=== PATIENT | male | born 1990 | race Hispanic/Latino ===

== ENCOUNTER 2020-01-21 12:39 | Inpatient (IN) | payer BC, SELFPAY ==
[~2020-01-21 12:39] MED LIST: Glycopyrrolate 0.2 MG/ML 5 ML SYRINGE ONE; Lidocaine 1% PF 5 ML VIAL ONE; PROPOFOL 200 MG/20 ML VIAL ONE; Rocuronium Bromide 10 MG/ML (10ML VIAL) ONE; Succinylcholine Chloride 20 MG/ML 10 ml SYRINGE FS ONE
[2020-01-21 14:09] LABS: Anion Gap 14 mmol/L (10-20); BUN (Urea Nitrogen) 8 mg/dL (8.9-20.6); Carbon Dioxide 25 mmol/L (22-29); Chloride 101 mmol/L (98-107); Potassium 3.4 mmol/L (3.5-5.1); Sodium 137 mmol/L (136-145)
[2020-01-21 14:10] LABS: ALT (SGPT) 169 U/L (8-55); AST (SGOT) 47 U/L (5-34); Albumin 4.4 g/dL (3.5-5.0); Alkaline Phosphatase 102 U/L (40-110); Bilirubin, Total 0.9 mg/dL (0.2-1.2); Calc. Creatinine Clearance 0 mL/min (70-130); Calcium 9.4 mg/dL (7.8-10.44); Estimated GFR-MDRD 77; Glucose 162 mg/dL (70-105); Protein, Total 8.4 g/dL (6.0-8.3)
[2020-01-21] MEDS ORDERED: Iopamidol-370 76% 500 ML 1 ML ONE (14:57)
[2020-01-21 15:02] LABS: Bacteria/HPF None Seen HPF (None Seen); Bilirubin Negative (Negative); Blood, Urine Negative (Negative); Clarity Clear (Clear); Glucose, Urine (Dipstick) 50 mg/dL (Negative); Leukocyte Negative Leu/uL (Negative); Nitrite Negative (Negative); Protein, Urine (Dipstick) 70 mg/dL (Neg-Trace); RBC/HPF 0-3 HPF (0-3); Squamous Epithelial None Seen HPF (0-3); Urobilinogen Normal mg/dL (Less than 2); WBC/HPF 0-3 HPF (0-3)
[2020-01-21 18:01] LABS: Hemoglobin 16.7 g/dL (14.0-18.0); Mean Corpuscular HGB CONC 33.2 g/dL (32.0-36.0); Mean Corpuscular Hemoglobin 28.9 pg (27.0-31.0); Mean Corpuscular Volume 87.2 fL (78.0-98.0); Mean Platelet Volume 8.4 fL (7.4-10.4); Platelet Count 341 thou/uL (130-400); RBC Distribution Width 12.1 % (11.5-14.5); Red Blood Cell (RBC) Count 5.76 mill/uL (4.70-6.10); White Blood Cell (WBC) Count 15.9 thou/uL (4.8-10.8)
[2020-01-21 18:17] LABS: Band 24 % (5-11); Lymphocytes 5 % (21-51); MDiff Complete? YES; Metamyelocyte 1 % (0-0); Monocytes 5 % (0-10); Neutrophil 64 % (42-75); Platelet Morphology Comment Appears Adequate; RBC Morphology Normal; Reactive Lymphocytes 1 % (0-10)
--- NOTE | 2020-01-21 18:46 | CT ---
CT ABDOMEN AND PELVIS WITH CONTRAST: History: Abdominal pain, chills, fever. Comparison: None. FINDINGS: Some mild atelectasis right lung base. No pericardial effusion. Aortic contour is non-aneurysmal. Some volume free fluid in the pelvis. There is acute appendicitis with an appendicolith at the appendiceal base. There is extensive periapp endiceal inflammation as well as inflammation of the iliac mesenteric fat occurring along the omentum . There is fluid in the right pericolic gutter. There is peritonitis. Secondary inflammatory change o f the distal ileum. There is an ileus of the distal ileum. Gallbladder is clear. Pancreas unremarkable. The pancreas is unremarkable, along the with the adrenal glands. No hydronephrosis. Bilateral symmetric renal enhancement. No acute osseous abnormality. IMPRESSION: 1. Findings of acute appendicitis with small appendiceal base appendicolith. 2. Extensive inflammatory change all throughout the lower pelvis which may reflect a component of per foration of the appendix. No free intraperitoneal gas is appreciated. Surgical consultation advised. 3. Inflammatory change involving the mesentery of the distal ileum with hyper enhancement. 4. Peritonitis with moderate volume free fluid in the pelvis and along the right pericolic gutter. POS: HOME
[2020-01-21] MEDS ORDERED: Piperacillin/Tazobactam 3.375 GM VIAL ONE (19:12)
[2020-01-21] MEDS ORDERED: Ondansetron PF 4 MG/2 ML Vial ONE ×2 (19:12→22:31)
[2020-01-21] MEDS ORDERED: Morphine 4 MG/ML VIAL ONE (19:12)
[2020-01-21] MEDS ORDERED: Ketorolac Tromethamine 30 MG/ML VIAL ONE (19:31)
[2020-01-21] MEDS ORDERED: Acetaminophen 500 MG TAB ONE (19:34)
[2020-01-21] MEDS ORDERED: Bupivacaine PF 0.5% 30 ML VIAL ONE (19:55)
[2020-01-21] MEDS ORDERED: EPINEPHrine 1 MG/ML AMP ONE (19:55)
[2020-01-21] MEDS ORDERED: Lidocaine 1% w/Epinephrine 1:100K 20 ML VIAL ONE (19:57)
[2020-01-21] MEDS ORDERED: Midazolam HCl 2 mg/2 ml Vial ONE (20:04)
[2020-01-21] MEDS ORDERED: Fentanyl 100 MCG/2 ML VIAL ONE (20:04)
[2020-01-21] MEDS ORDERED: hydrALAZINE 20 MG/ML VIAL SLOW IVP PRN (20:33)
[2020-01-21] MEDS ORDERED: Morphine 4 MG/ML VIAL SLOW IVP PRN ×2 (20:33→20:39)
[2020-01-21] MEDS ORDERED: traMADol HCl 50 MG TAB PO PRN (20:36)
--- NOTE | 2020-01-21 21:07 | HP ---
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 He continued to have pain, localized in the right lower quadrant, increased pain with movement, suffered anorexia and nausea. He presented to [facility] Emergency Room at noon and waited for 4-5 hours and was not seen. His is upset that other people arrived after them and were seen before them and sent home. The patient was seen eventually and appreciated to have an exam suspicious for appendicitis, underwent a CAT scan confirming an appendicitis. I was called at 7:30 p.m. and decision was made to put him in the hospital overnight and on antibiotics and perform a laparoscopic appendectomy the next day. The patient had his first set of vital signs taken since noon at 8 p.m. and was noted to have a fever to 102 degrees, tachycardic to 140, and respiratory rate in the upper 20s. I was called again. Decision was made to attend to the surgical problem tonight and he was brought down for a laparoscopic appendectomy from the emergency room prior to going to his room. He received Zosyn and Toradol IV and Tylenol p.o. ALLERGIES: NONE. TOBACCO: None. ALCOHOL: Socially. MEDICATIONS: None routinely. PAST SURGICAL HISTORY: Noncontributory. PAST MEDICAL HISTORY: Noncontributory. PHYSICAL EXAMINATION: VITAL SIGNS: Heart rate 110, respiratory rate 18, 130/68. HEAD, EARS, EYES, NOSE, AND THROAT: Unremarkable. LUNGS: Clear to auscultation. CARDIAC: Slight sinus tachycardia. ABDOMEN: Tender, right lower quadrant. No guarding or rebound. Positive Rovsing's. EXTREMITIES: Unremarkable. LABORATORY DATA: White count 72035, 24% bands, hemoglobin 16. Liver function tests normal. Basic met is normal. BUN 8, creatinine 1.13. CAT scan revealed changes consistent with appendicitis. ASSESSMENT AND PLAN: Acute appendicitis. Recommend laparoscopic video appendectomy. Risks of infection, bleeding, visceral injury, open procedure, postoperative bleeding, etc., discussed. Questions answered. Job ID: [id number]
[2020-01-21] MEDS ORDERED: SUGAMMADEX SODIUM 500 MG/5 ML VIAL ONE (21:23)
[2020-01-21] MEDS ORDERED: Ondansetron HCl/PF 4 MG/2 ML Vial IVP PRN (21:34)
[2020-01-21] MEDS ORDERED: Promethazine HCl 25 MG/ML VIAL IM PRN (21:34)
[2020-01-21] MEDS ORDERED: Promethazine HCl 25 MG/ML VIAL SLOW IVP PRN (21:34)
[2020-01-21] MEDS: Lactated Ringer's 1,000 ML IV SCH (23:09)
[2020-01-21] MEDS: Ketorolac Tromethamine 30 MG/ML VIAL IVP SCH (23:13)
[2020-01-21] MEDS: Enoxaparin Sodium 40 MG/0.4 ML SYRINGE SC SCH (23:13)
[2020-01-22] MEDS: Piperacillin/Tazobactam 4.5 GM in Sodium Chloride 0.9% 100 ML IVPB SCH ×4 (01:59→20:33)
[2020-01-22] MEDS: Lactated Ringer's 1,000 ML IV SCH ×2 (02:00→09:15)
--- NOTE | 2020-01-22 03:08 | OP ---
DATE OF PROCEDURE: 01/21/2020 PREOPERATIVE DIAGNOSES: Acute appendicitis, ruptured with peritonitis. POSTOPERATIVE DIAGNOSES: Acute appendicitis, ruptured with peritonitis. PROCEDURES PERFORMED: Laparoscopic video appendectomy, #19 Gold EDNA drain, and abdominal washout, 3 L. ANESTHESIA: General, local of 0.5% Marcaine 30 mL mixed with 1% Xylocaine with epinephrine 20 mL, 30 mL mixture used. DESCRIPTION OF PROCEDURE: The patient was taken to the operating room, where under general anesthesia, abdomen was clipped of hair, prepared with ChloraPrep and draped in routine fashion. Lombardi catheter was placed at the beginning of the procedure and removed at the end. Pneumoperitoneum to 15 mmHg was obtained with Veress needle through an infraumbilical incision and Veress needle was replaced with a 5 port and laparoscope was inserted. Right lateral subcostal incision was made. A 5 port was placed. Suprapubic incision was made, and a 12 port was placed. There was a ruptured appendicitis with purulence in the pelvis and right gutter. Appendix was acutely inflamed and perforated. Mesentery was taken down with the LigaSure. The stump of the appendix was divided in the cecal stump with Endo laparoscopic stapler, blue load. Stapled the cecal stump. Hemostasis was gained with clips. Appendix was placed in Endobag and removed. Abdominal cavity was irrigated with 3 L of saline. Irrigant was evacuated. Hemostasis was noted. A #19 Gold EDNA drain was placed through the right lateral port site subcostal and secured with 3-0 nylon and drain was placed in the right gutter and pelvis. Irrigant and pneumoperitoneum were evacuated. All instruments were removed after suprapubic fascia was approximated with 0 Vicryl on GraNee needle. All skin incisions were approximated with subdermal 4-0 Monocryl. Job ID: [id number]
[2020-01-22] MEDS: traMADol HCl 50 MG TAB PO PRN ×3 (04:04→16:11)
[2020-01-22] MEDS: Ketorolac Tromethamine 30 MG/ML VIAL IVP SCH ×3 (05:12→17:37)
[2020-01-22 05:43] LABS: Band 52 % (5-11); Hemoglobin 13.6 g/dL (14.0-18.0); Lymphocytes 10 % (21-51); MDiff Complete? YES; Mean Corpuscular HGB CONC 32.1 g/dL (32.0-36.0); Mean Corpuscular Hemoglobin 28.4 pg (27.0-31.0); Mean Corpuscular Volume 88.6 fL (78.0-98.0); Mean Platelet Volume 8.7 fL (7.4-10.4); Monocytes 7 % (0-10); Neutrophil 31 % (42-75); Platelet Count 248 thou/uL (130-400); Platelet Morphology Comment Appears Adequate; RBC Distribution Width 12.2 % (11.5-14.5); Red Blood Cell (RBC) Count 4.79 mill/uL (4.70-6.10); White Blood Cell (WBC) Count 14.2 thou/uL (4.8-10.8)
[2020-01-22] MEDS: Acetaminophen 500 MG TAB PO PRN ×2 (09:11→16:11)
--- NOTE | 2020-01-22 16:33 | PRG ---
DATE OF SERVICE: 01/22/2020 SUBJECTIVE: Javon Gilmore is 1 day status post laparoscopic appendectomy for perforated appendicitis with peritonitis. He has a drain. It is draining serosanguineous. 50 mL in the last 24 hours. His white count this morning is 14, hemoglobin 13. Basic metabolic profile is normal. He is tolerating his diet. OBJECTIVE: LUNGS: Clear to auscultation. CARDIAC: Regular rate and rhythm without murmur or gallop. ABDOMEN: Soft. Postoperative tenderness. Surgical trocar sites healthy. No problems. EXTREMITIES: Unremarkable. ASSESSMENT AND PLAN: Resolving peritonitis from perforated appendicitis. Continue drain. Continue intravenous antibiotics. Decrease IV fluids. Increase activity. Anticipate discharge in next 24 to 48 hours, pending clinical course. Job ID: [id number]
[2020-01-22] MEDS: Enoxaparin Sodium 40 MG/0.4 ML SYRINGE SC SCH (20:34)
[2020-01-22] MEDS ORDERED: FLU VACC QS2019-20(6MOS UP)/PF 60 MCG/0.5 ML SYRINGE IM ONE (21:00)
[2020-01-23] MEDS: Ketorolac Tromethamine 30 MG/ML VIAL IVP SCH ×5 (00:37→23:33)
[2020-01-23] MEDS: Piperacillin/Tazobactam 4.5 GM in Sodium Chloride 0.9% 100 ML IVPB SCH ×4 (03:14→20:17)
[2020-01-23 05:49] LABS: #Eosinphils 0.1 thou/uL (0.0-0.7); #Lymphocytes 1.9 thou/uL (1.20-3.40); #Monocytes 0.9 thou/uL (0.11-0.59); #Neutrophils 13.7 thou/uL (1.40-6.50); %Basophils 0.1 % (0.0-1.0); %Eosinophils 0.6 % (0.0-10.0); %Lymphocytes 11.4 % (21.0-51.0); %Monocytes 5.4 % (0.0-10.0); %Neutrophils 82.5 % (42.0-75.0); Hemoglobin 13.3 g/dL (14.0-18.0); Mean Corpuscular HGB CONC 33.1 g/dL (32.0-36.0); Mean Corpuscular Hemoglobin 29.6 pg (27.0-31.0); Mean Corpuscular Volume 89.6 fL (78.0-98.0); Mean Platelet Volume 9.1 fL (7.4-10.4); Platelet Count 227 thou/uL (130-400); RBC Distribution Width 12.2 % (11.5-14.5); White Blood Cell (WBC) Count 16.6 thou/uL (4.8-10.8)
[2020-01-23] MEDS: Ondansetron ODT 4 MG TAB PO PRN ×2 (08:14→20:19)
[2020-01-23] MEDS ORDERED: Lactated Ringer's 1,000 ML IV SCH ×2 (12:15→12:45)
[2020-01-23] MEDS: Lactated Ringer's 1,000 ML IV SCH ×2 (12:47→23:35)
--- NOTE | 2020-01-23 13:16 | PQF ---
CLINICAL DOCUMENTATION IMPROVEMENT CLARIFICATION FORM: ICD-10 Updated PLEASE DO AN ADDENDUM TO THE PROGRESS NOTE WITH ANY DOCUMENTATION UPDATES OR ADDITIONS AND CARRY THROUGH TO DC SUMMARY. THANK YOU. DATE: 01/23/20 ATTN : DR. CONNOR Please exercise your independent, professional judgment in responding to the clarification form. Clinical indicators are provided on the bottom of this form for your review Please check appropriate box(es): [ yes] Sepsis due to: (Pna, UTI, gangrenous gall bladder, etc.) __ruptured appendicitis/peritonitis [ ] SIRS due to non-infectious process (please specify etiology) [ ] Localized infection without sepsis [ ] Other diagnosis [ ] Unable to determine In addition, please specify: Present on Admission (POA): [yes ] Yes [ ] No [ ] Unable to determine For continuity of documentation, please document condition throughout progress notes and discharge summary. Thank You. CLINICAL INDICATORS - SIGNS / SYMPTOMS / LABS / RESULTS AND LOCATION IN MR ER NOTE: PULSE 142 RR 32 TEMP 103.1 WBC 01/20: 15.9 WBC 01/21: 14.2 WBC 01/22: 16.6 RISKS: APPENDICITIS, RUPTURED WITH PERITONITIS (OP NOTE 01/20) TREATMENT: IV FLUIDS (ER-PRESENT) IV ZOSYN (ER-PRESENT) APPENDECTOMY WITH DRAIN AND ABDOMINAL WASHOUT (OP NOTE /) SERIAL LABS [employer] Winform Viewer (This form is maintained as a part of the permanent medical record) 2014 [employer]. All Rights Reserved [email or web address] Office: [phone] [facility]
--- NOTE | 2020-01-23 13:26 | PRG ---
DATE OF SERVICE: 01/23/2020 SUBJECTIVE: Javon Gilmore is doing fairly well. He is having some nausea. Urine output is diminished. OBJECTIVE: VITAL SIGNS: His heart rate is mildly elevated to 107 and 97, temperature 98.5 degrees, blood pressure 117/78. EDNA drain is serosanguineous in nature. 150 mL in last 24 hours. LUNGS: Clear to auscultation. CARDIAC: Regular rhythm. No murmur or gallop. ABDOMEN: Soft. Diminished bowel sounds. Postoperative tenderness. EXTREMITIES: Unremarkable. LABORATORY DATA: White count 16, hemoglobin 13. Labs, none today. ASSESSMENT AND PLAN: appendicitis with peritonitis. Continue intravenous antibiotics. We will take him back to clear liquids. Increase IV fluids. Await better bowel function and nausea to resolve. Job ID: [id number]
[2020-01-23] MEDS: Enoxaparin Sodium 40 MG/0.4 ML SYRINGE SC SCH (20:17)
[2020-01-23] MEDS: Acetaminophen 500 MG TAB PO PRN (23:32)
[2020-01-24] MEDS: Piperacillin/Tazobactam 4.5 GM in Sodium Chloride 0.9% 100 ML IVPB SCH ×4 (02:19→20:18)
[2020-01-24] MEDS: Lactated Ringer's 1,000 ML IV SCH ×3 (04:23→20:23)
[2020-01-24] MEDS: Ketorolac Tromethamine 30 MG/ML VIAL IVP SCH ×4 (05:47→23:15)
[2020-01-24 06:02] LABS: #Eosinphils 0.3 thou/uL (0.0-0.7); #Lymphocytes 2.2 thou/uL (1.20-3.40); #Monocytes 0.9 thou/uL (0.11-0.59); #Neutrophils 11.1 thou/uL (1.40-6.50); %Basophils 0.1 % (0.0-1.0); %Eosinophils 2.3 % (0.0-10.0); %Lymphocytes 15.3 % (21.0-51.0); %Monocytes 6.1 % (0.0-10.0); %Neutrophils 76.2 % (42.0-75.0); Hemoglobin 12.4 g/dL (14.0-18.0); Mean Corpuscular HGB CONC 33.9 g/dL (32.0-36.0); Mean Corpuscular Hemoglobin 29.8 pg (27.0-31.0); Mean Platelet Volume 8.8 fL (7.4-10.4); Platelet Count 256 thou/uL (130-400); Red Blood Cell (RBC) Count 4.15 mill/uL (4.70-6.10); White Blood Cell (WBC) Count 14.6 thou/uL (4.8-10.8)
[2020-01-24 06:26] LABS: Anion Gap 10 mmol/L (10-20); BUN (Urea Nitrogen) 13 mg/dL (8.9-20.6); Calc. Creatinine Clearance 210 mL/min (70-130); Calcium 8.7 mg/dL (7.8-10.44); Carbon Dioxide 27 mmol/L (22-29); Chloride 104 mmol/L (98-107); Estimated GFR-MDRD Greater than 90; Glucose 76 mg/dL (70-105); Potassium 3.2 mmol/L (3.5-5.1); Sodium 138 mmol/L (136-145)
[2020-01-24] MEDS ORDERED: Potassium Chloride 20 MEQ TAB PO SCH (07:30)
[2020-01-24] MEDS: Ondansetron ODT 4 MG TAB PO PRN (12:50)
--- NOTE | 2020-01-24 16:47 | PRG ---
DATE OF SERVICE: 01/24/2020 SUBJECTIVE: Hospital day #3, status post laparoscopic appendectomy for perforated appendicitis with peritonitis. He has drain in place. His drainage is serosanguineous. Output is 40 mL in last 24 hours. Urine output is good. He is voiding spontaneously after removal of [place]. [place] [address] [address] yesterday, hemoglobin 12. Basic metabolic profile is normal. The patient is tolerating liquids, although not very well. He still on IV fluids. IV fluids were restarted yesterday. He reports small flatus but no bowel movement. OBJECTIVE: LUNGS: Clear to auscultation. CARDIAC: Regular rhythm. No murmur or gallop. ABDOMEN: Soft, less tender. Occasional bowel sounds. EDNA drain serosanguineous. ASSESSMENT AND PLAN: Perforated appendicitis. Continue drain remove prior to discharge. He will continue on full liquids, advance tomorrow pending clinical course and GI function. Continue Zosyn IV for peritonitis. Job ID: [id number]
[2020-01-24] MEDS: Enoxaparin Sodium 40 MG/0.4 ML SYRINGE SC SCH (20:18)
[2020-01-25] MEDS: Piperacillin/Tazobactam 4.5 GM in Sodium Chloride 0.9% 100 ML IVPB SCH ×4 (01:21→20:07)
[2020-01-25] MEDS: Lactated Ringer's 1,000 ML IV SCH (03:34)
[2020-01-25] MEDS: traMADol HCl 50 MG TAB PO PRN ×2 (03:34→18:20)
[2020-01-25] MEDS: Ketorolac Tromethamine 30 MG/ML VIAL IVP SCH ×4 (05:09→23:45)
[2020-01-25] MEDS: Acetaminophen 500 MG TAB PO PRN ×2 (05:09→23:44)
[2020-01-25 06:28] LABS: Band 5 % (5-11); Eosinophils 2 % (0-10); Lymphocytes 10 % (21-51); MDiff Complete? YES; Mean Corpuscular HGB CONC 34.9 g/dL (32.0-36.0); Mean Corpuscular Hemoglobin 30.5 pg (27.0-31.0); Mean Corpuscular Volume 87.3 fL (78.0-98.0); Monocytes 13 % (0-10); Neutrophil 70 % (42-75); Platelet Count 268 thou/uL (130-400); RBC Distribution Width 11.8 % (11.5-14.5); Red Blood Cell (RBC) Count 3.95 mill/uL (4.70-6.10)
[2020-01-25] MEDS ORDERED: Potassium Chloride 20 MEQ TAB PO SCH (11:15)
--- NOTE | 2020-01-25 12:07 | PRG ---
DATE OF SERVICE: 01/25/2020 SUBJECTIVE: Javon Gilmore is doing well today. He is tolerating his diet. He desires a regular diet and I will order that. OBJECTIVE: VITAL SIGNS: He did have a temperature of 100.2 degrees at 5 o'clock this morning, currently 98.3 degrees, pulse 76, and blood pressure 161/91. LUNGS: Clear to auscultation. CARDIAC: Regular rhythm without murmur or gallop. ABDOMEN: Soft. Good bowel sounds plus flatus. He did have some loose stools. EXTREMITIES: Unremarkable. LABORATORY DATA: His white count is slightly improved down to 13, down from 16 two days ago. His differential is normal. His electrolytes are normal. Potassium slightly low at 3.2. We will replace potassium orally. ASSESSMENT AND PLAN: Status post perforated appendicitis. Continue intravenous antibiotics until afebrile. White blood cell count has a downward trend. He may be able to go home over the weekend on oral antibiotics. We will remove his drain today. Dr. Rincon is covering over the weekend and will be seeing him in the next 3 days. We will replace his potassium, replete that in the morning. Job ID: [id number]
[2020-01-25] MEDS: Enoxaparin Sodium 40 MG/0.4 ML SYRINGE SC SCH (20:08)
[2020-01-25 23:55] VITALS: BMI 33.0
[2020-01-26] MEDS: Piperacillin/Tazobactam 4.5 GM in Sodium Chloride 0.9% 100 ML IVPB SCH ×4 (01:09→21:37)
[2020-01-26] MEDS: Ketorolac Tromethamine 30 MG/ML VIAL IVP SCH ×3 (05:16→18:42)
[2020-01-26 08:58] LABS: #Eosinphils 0.3 thou/uL (0.0-0.7); #Lymphocytes 2.3 thou/uL (1.20-3.40); #Monocytes 1.4 thou/uL (0.11-0.59); #Neutrophils 8.3 thou/uL (1.40-6.50); %Eosinophils 2.5 % (0.0-10.0); %Lymphocytes 18.5 % (21.0-51.0); %Monocytes 11.1 % (0.0-10.0); %Neutrophils 67.8 % (42.0-75.0); Hemoglobin 12.7 g/dL (14.0-18.0); Mean Corpuscular HGB CONC 31.4 g/dL (32.0-36.0); Mean Corpuscular Hemoglobin 27.2 pg (27.0-31.0); Mean Corpuscular Volume 86.7 fL (78.0-98.0); Mean Platelet Volume 7.7 fL (7.4-10.4); Platelet Count 347 thou/uL (130-400); Red Blood Cell (RBC) Count 4.68 mill/uL (4.70-6.10); White Blood Cell (WBC) Count 12.3 thou/uL (4.8-10.8)
[2020-01-26] MEDS ORDERED: Polyethylene Glycol 3350 17 GM Packet PO SCH (12:30)
--- NOTE | 2020-01-26 12:49 | PRG ---
DATE OF SERVICE: 01/26/2020 SUBJECTIVE: Mr. Gilmore is postoperative day #5 from laparoscopic appendectomy for perforated appendicitis. He has had his postoperative drain removed yesterday. He tells me he still has some abdominal discomfort. He has not had a bowel movement today, but he is tolerating his diet. PHYSICAL EXAMINATION: VITAL SIGNS: His maximum temperature is 100.6 last night, but he is 100.2 currently. Pulse is 94, blood pressure 127/82. LUNGS: Clear to auscultation. ABDOMEN: Soft with normoactive bowel sounds. Incisions appear to be healing appropriately. Drain site in the right abdomen is also healing appropriately. LABORATORY DATA: CBC from today shows that his white count is slowly trending down, it was 13 yesterday, it is 12.3 today. ASSESSMENT: The patient is continuing to improve. He probably benefit from another day of IV antibiotics. He is maintained on Zosyn currently. I will give him MiraLAX to help encourage bowel regularity and hope for discharge home tomorrow. Job ID: [id number]
[2020-01-26] MEDS: Acetaminophen 500 MG TAB PO PRN (17:26)
[2020-01-26] MEDS: Enoxaparin Sodium 40 MG/0.4 ML SYRINGE SC SCH (21:37)
[2020-01-26] MEDS: Polyethylene Glycol 3350 17 GM Packet PO SCH (21:37)
[2020-01-27] MEDS: Ketorolac Tromethamine 30 MG/ML VIAL IVP SCH (00:10)
[2020-01-27] MEDS: Piperacillin/Tazobactam 4.5 GM in Sodium Chloride 0.9% 100 ML IVPB SCH ×2 (01:49→08:36)
[2020-01-27] MEDS: traMADol HCl 50 MG TAB PO PRN (01:53)
[2020-01-27 07:56] LABS: Band 3 % (5-11); Eosinophils 2 % (0-10); Hemoglobin 12.8 g/dL (14.0-18.0); Lymphocytes 34 % (21-51); MDiff Complete? YES; Mean Corpuscular HGB CONC 34.8 g/dL (32.0-36.0); Mean Corpuscular Hemoglobin 30.2 pg (27.0-31.0); Mean Corpuscular Volume 86.8 fL (78.0-98.0); Mean Platelet Volume 7.5 fL (7.4-10.4); Monocytes 8 % (0-10); Neutrophil 53 % (42-75); Platelet Count 355 thou/uL (130-400); RBC Distribution Width 12.1 % (11.5-14.5); Red Blood Cell (RBC) Count 4.25 mill/uL (4.70-6.10); White Blood Cell (WBC) Count 12.1 thou/uL (4.8-10.8)
[2020-01-27 08:27] VITALS: BP 131/84
[2020-01-27] MEDS: Polyethylene Glycol 3350 17 GM Packet PO SCH (08:37)
[2020-01-27 09:05] VITALS: TEMP 99
--- NOTE | 2020-01-27 11:10 | DIS ---
DATE OF ADMISSION: 01/21/2020 DATE OF DISCHARGE: 01/27/2020 ADMISSION DIAGNOSIS: Perforated appendicitis with peritonitis. DISCHARGE DIAGNOSIS: Perforated appendicitis with peritonitis. PROCEDURES PERFORMED: Laparoscopic appendectomy with abdominal washout and drain placement per Dr. Hernandez on 01/20. ADMISSION HISTORY: The patient is a 29-year-old male. He speaks limited Chadian. He had presented to the hospital with findings consistent with perforated appendicitis and peritonitis. He was taken urgently to the operating room by Dr. Hernandez. HOSPITAL COURSE: He underwent uneventful surgery per Dr. Hernandez on 01/20. Drain was placed. This was removed on 01/24 when there was negligible serosanguineous output. The patient had leukocytosis with white blood cell count as high as 16 and this has slowly came down. Today, it is 12. His hemoglobin has remained stable. His chemistries were unremarkable. The patient did have a fever postoperatively up to 100.6 on the . His temperature curve has trended downward and he has not had a temperature over 100 now in over 24 hours. He has tolerated his diet and has been on a regular diet without IV fluids for the past 2 or 3 days. At this point, he is stable for discharge. He is discharged to home with a prescription for tramadol to use as necessary and another 5 days of Augmentin. He has been on Zosyn for 6 days since his surgery. He will discuss and return to work with Dr. Hernnadez at a followup visit. I recommended he is to follow up with Dr. Hernandez about 10 days, which would be about 2 weeks out from his surgery. Job ID: [id number]
--- NOTE | 2020-02-20 08:11 | PQF ---
ANITRA PETERSON MICHAEL W MD [id number] [facility] [id number] CLINICAL DOCUMENTATION CLARIFICATION FORM: POST DISCHARGE Addendum to original discharge summary date: ____ Late entry note date: This is Dr. Clement's patient. He admitted the patient and did the surgery. All queries about him should go to Dr. Clement. _ DATE: ATTN: BENEDICT RINCON MD Please exercise your independent, professional judgment in responding to the clarification form. Clinical indicators are provided on the bottom of this form for your review Please check appropriate box(s): [ ] Acute perforated appendicitis with peritonitis is infectious [ ] Acute Perforated appendicitis with peritonitis is not infectious [ ] Other diagnosis [ ] Unable to determine For continuity of documentation, please document condition throughout progress notes and discharge summary. Thank You. Clinical Indicators - Signs / Symptoms / Labs Sepsis due to ruptured appendicitis/peritonitis-Documented in Query response Acute appendicitis, ruptured with peritonitis-Documented in OP note on 01/20 by Mann Hernandez MD WBC-16.6-Documented in Laboratory Perforated appendicitis with peritonitis-Documented in discharge summary on by Benedict Rincon Risk Factors Sepsis due to ruptured appendicitis/peritonitis-Documented in Query response Treatments Laparoscopic video appendectomy -Documented in OP note on 01/20 by Mann Hernandez MD Zosyn 4.5 gm IV-Documented in Medication snapshot (This form is maintained as a part of the permanent medical record) 2014 [employer] All Rights Reserved [email or web address] [phone] [email or web address]
== END 2020-01-27 11:48 | disposition home or self-care (01) | DRG 338 ==
LOC: ERS 12:39 → SDC/OP 20:14 → SURG A 22:54
PROVIDERS: ADMIT Specialist; ATTEND Specialist
PROC: 0DTJ4ZZ Resection of Appendix, Percutaneous Endoscopic Approach (ICD-10-PCS; principal; 2020-01-21)
DX: K35.32 Acute appendicitis with perforation, localized peritonitis, and gangrene, without abscess (principal); A41.9 Sepsis, unspecified organism; R50.82 Postprocedural fever; K59.00 Constipation, unspecified
CPT/HCPCS: 36415; 74177; 80048; 80053; 81003; 81015; 85025; 88304; 96374; 96375; J0171; J0360; J1650; J1885; J2001; J2250; J2270; J2405; J2543; J2704; J3010; J3490; Q0162; Q9967; S0020